=== PATIENT | female | born 1985 | race Caucasian/White ===

== ENCOUNTER 2017-10-12 16:45 | Observation (INO) | payer MEDICAID ==
[~2017-10-12] VITALS: Ht 162.6 cm; Wt 86.6 kg
[2017-10-12] MEDS ORDERED: FERR325T6 PO (17:20)
[2017-10-12] MEDS ORDERED: PREN1TAB78 PO (17:20)
== END 2017-10-12 19:00 | disposition home or self-care (01) ==
LOC: L&D 16:45
PROVIDERS: ADMIT Obstetrics & Gynecology; ATTEND Obstetrics & Gynecology
DX: O62.9 Abnormality of forces of labor, unspecified (principal); O32.1XX0 Maternal care for breech presentation, not applicable or unspecified; Z3A.39 39 weeks gestation of pregnancy
CPT/HCPCS: 76805; 99281; G0378

== ENCOUNTER 2017-10-22 05:56 | Inpatient (IN) | payer MEDICAID ==
[~2017-10-22] VITALS: Ht 162.6 cm; Wt 85.7 kg
[~2017-10-22 05:56] MED LIST: FERR325T6 PO; PREN1TAB78 PO
[2017-10-22] MEDS ORDERED: DEXT 5%/LR + PITOCIN 20UNITS/L 1,000 ML IV SCH (06:07)
[2017-10-22] MEDS ORDERED: CARBOPROST TROMETHAMINE 250 MCG/ML AMPUL IM PRN (06:15)
[2017-10-22] MEDS ORDERED: METHYLERGONOVINE MALEATE 0.2 MG/ML IM PRN (06:15)
[2017-10-22] MEDS: LACTATED RINGERS 1,000 ML IV SCH ×2 (07:21→10:41)
[2017-10-22 07:29] LABS: CLARITY URINE TURBID (CLEAR); COLOR URINE YELLOW (YELLOW); KETONES URINE NEGATIVE (NEGATIVE); LEUKOCYTE ESTERASE URINE 2+ (NEGATIVE); NITRITE URINE NEGATIVE (NEGATIVE); OCCULT BLOOD URINE NEGATIVE (NEGATIVE); PH URINE 6.5 (4.5-8.0); PROTEIN URINE NEGATIVE (NEGATIVE); SPECIFIC GRAVITY URINE 1.014 (1.005-1.030); UROBILINOGEN URINE 0.2 E.U./dL (0.2-1.0)
[2017-10-22 07:31] LABS: BASOPHILS % 0.3 % (0.0-2.0); EOSINOPHILS % 0.5 % (0.0-5.0); HEMATOCRIT. 28.4 % (36.0-48.0); HEMOGLOBIN. 9.8 g/dL (12.0-16.0); LYMPHOCYTES % 18.2 % (20.0-50.0); MEAN CORPUSCULAR HEMOGLOBIN 29.3 pg (28.0-32.0); MEAN CORPUSCULAR VOLUME 84.8 fL (81.0-99.0); MEAN PLATELET VOLUME 8.6 fl (7.4-10.4); MONOCYTES % 5.8 % (2.0-8.0); NEUTROPHILS % 75.2 % (40.0-76.0); PLATELET 259 x1000/uL (130-400); PROTHROMBIN TIME 10.4 sec (9.4-11.6); RED BLOOD CELL COUNT 3.35 mill/uL (4.2-5.4); RED CELL DISTRIBUTION WIDTH 14.8 % (11.6-14.6)
[2017-10-22 08:01] LABS: *AMPHETAMINES SCREEN URINE NEGATIVE (NEGATIVE); *BARBITURATES SCREEN URINE NEGATIVE (NEGATIVE); *BENZODIAZEPINES SCREEN URINE NEGATIVE (NEGATIVE); *COCAINE SCREEN URINE NEGATIVE (NEGATIVE); CANNABINOID URINE SCREEN NEGATIVE (NEGATIVE); METHADONE URINE SCREEN NEGATIVE (NEGATIVE); OPIATES URINE SCREEN NEGATIVE (NEGATIVE); PHENCYCLIDINE URINE SCREEN NEGATIVE (NEGATIVE)
[2017-10-22 08:11] LABS: RUBELLA IGG 61.2 IU/mL (4.99-10)
[2017-10-22 08:12] LABS: HEPATITIS B SURFACE ANTIGEN NEGATIVE
[2017-10-22] MEDS ORDERED: FENTANYL CITRATE/PF 50MCG/ML 2ML VIAL ONE (12:52)
[2017-10-22] MEDS ORDERED: MORPHINE SULFATE/PF 1MG/ML 10ML AMP ONE (12:52)
[2017-10-22] MEDS ORDERED: PHENYLEPHRINE HCL 10 MG/ML 1ML (IV VIAL) IV ONE (12:52)
[2017-10-22] MEDS ORDERED: CEFAZOLIN SODIUM 1000MG/VIAL ONE (13:19)
[2017-10-22] MEDS ORDERED: DIPHENHYDRAMINE 50MG/ML VIAL IM PRN (13:45)
[2017-10-22] MEDS ORDERED: NALOXONE HCL 0.4 MG/ML 1ML VIAL IV PRN ×3 (13:45→14:07)
[2017-10-22] MEDS ORDERED: GLYCOPYRROLATE 0.2 MG/ML 2ML VIAL ONE (13:56)
[2017-10-22] MEDS ORDERED: RHO(D) IMMUNE GLOBULIN 300 MCG/SYR IM PRN (14:00)
[2017-10-22] MEDS ORDERED: HYDROMORPHONE HCL/PF 2MG/ML CPJ IM PRN (14:00)
[2017-10-22] MEDS ORDERED: BISACODYL 10MG SUPP PR PRN (14:00)
[2017-10-22] MEDS ORDERED: IBUPROFEN 400MG TABLET PO PRN (14:00)
[2017-10-22] MEDS: DEXT 5%/LR + PITOCIN 20UNITS/L 1,000 ML IV SCH ×2 (15:11→21:47)
[2017-10-22] MEDS: KETOROLAC 30MG/ML VIAL IV SCH ×2 (15:16→21:45)
[2017-10-22 16:45] VITALS: BP 109/69
[2017-10-22 17:15] VITALS: BP 107/70
[2017-10-22] MEDS: ONDANSETRON HCL 4MG/2ML VIAL IV PRN (17:43)
[2017-10-22 17:45] VITALS: BP 109/78
[2017-10-22 20:00] VITALS: BP 103/67
[2017-10-23] MEDS: ONDANSETRON HCL 4MG/2ML VIAL IV PRN (00:02)
[2017-10-23 00:05] VITALS: BP 120/71
[2017-10-23] MEDS: KETOROLAC 30MG/ML VIAL IV SCH ×2 (02:00→07:40)
[2017-10-23 04:00] VITALS: BP 124/78
[2017-10-23] MEDS: DEXT 5%/LR + PITOCIN 20UNITS/L 1,000 ML IV SCH (05:41)
[2017-10-23 07:02] LABS: BASOPHILS % 0.2 % (0.0-2.0); EOSINOPHILS % 0.6 % (0.0-5.0); HEMATOCRIT. 26.3 % (36.0-48.0); HEMOGLOBIN. 8.8 g/dL (12.0-16.0); LYMPHOCYTES % 21.4 % (20.0-50.0); MEAN CORPUSCULAR HEMOGLOBIN 28.7 pg (28.0-32.0); MEAN CORPUSCULAR VOLUME 85.9 fL (81.0-99.0); MEAN PLATELET VOLUME 8.7 fl (7.4-10.4); MONOCYTES % 7.4 % (2.0-8.0); NEUTROPHILS % 70.4 % (40.0-76.0); PLATELET 236 x1000/uL (130-400); RED BLOOD CELL COUNT 3.06 mill/uL (4.2-5.4); RED CELL DISTRIBUTION WIDTH 15.1 % (11.6-14.6)
[2017-10-23 07:45] VITALS: BP 120/77
[2017-10-23] MEDS ORDERED: IBUPROFEN 400MG TABLET PO PRN (14:00)
[2017-10-23] MEDS: ACETAMINOPHEN WITH CODEINE 300/30MG TABLET PO PRN ×2 (15:43→21:21)
[2017-10-23 16:28] VITALS: BP 111/78
[2017-10-23] MEDS: IBUPROFEN 800MG TABLET PO PRN (16:57)
[2017-10-23 21:40] VITALS: BP 128/83
[2017-10-24 06:30] VITALS: BP 110/68
[2017-10-24 08:02] VITALS: BP 116/77
[2017-10-24] MEDS: IBUPROFEN 800MG TABLET PO PRN (08:53)
[2017-10-24] MEDS: ACETAMINOPHEN WITH CODEINE 300/30MG TABLET PO PRN (14:09)
[2017-10-24] MEDS ORDERED: INFLUENZA VIRUS VACCINE 0.5ML SYR IM ONE (16:00)
[2017-10-24 16:09] VITALS: BP 122/82
[2017-10-24] MEDS ORDERED: TETANUS, DIPHTHERIA, PERTUSSIS VAC/PF 0.5ML (>7YR OLD) IM ONE (18:00)
== END 2017-10-24 17:55 | disposition home or self-care (01) | DRG 540 ==
LOC: L&D 05:56 → OBSVTOIN 05:56 → 7EST PP/OB 17:11
PROVIDERS: ADMIT Obstetrics & Gynecology; ATTEND Obstetrics & Gynecology
PROC: 10D00Z1 Extraction of Products of Conception, Low, Open Approach (ICD-10-PCS; principal; 2017-10-22 13:56)
DX: O34.219 Maternal care for unspecified type scar from previous cesarean delivery (principal); D64.9 Anemia, unspecified; O69.81X0 Labor and delivery complicated by cord around neck, without compression, not applicable or unspecified; O99.02 Anemia complicating childbirth; Z3A.39 39 weeks gestation of pregnancy; Z37.0 Single live birth
CPT/HCPCS: 36415; 80305; 81003; 85025; 85610; 86592; 86703; 86762; 86850; 86900; 86920; 87340; 88307; 90686; 90715; J0690; J1885; J2274; J2370; J2405; J2590; J3010; J3490; J7120; A4315

== ENCOUNTER 2019-12-04 15:13 | Observation (INO) | payer MEDICAID ==
[~2019-12-04] VITALS: Ht 157.5 cm; Wt 87.1 kg
[~2019-12-04 15:13] MED LIST changes: -PREN1TAB78 PO
[2019-12-04 16:21] LABS: CLARITY URINE CLOUDY (CLEAR); COLOR URINE YELLOW (YELLOW); KETONES URINE TRACE (NEGATIVE); LEUKOCYTE ESTERASE URINE 2+ (NEGATIVE); NITRITE URINE NEGATIVE (NEGATIVE); OCCULT BLOOD URINE NEGATIVE (NEGATIVE); PH URINE 6.5 (4.5-8.0); PROTEIN URINE NEGATIVE (NEGATIVE); SPECIFIC GRAVITY URINE 1.014 (1.005-1.030)
[2019-12-04] MEDS ORDERED: SODIUM CHLORIDE 0.9% 500 ML IV NR (17:00)
[2019-12-04] MEDS ORDERED: ACETAMINOPHEN 500MG TABLET PO NR (17:04)
[2019-12-04] MEDS ORDERED: CEFAZOLIN 2,000 MG in DEXT 5% WATER 100 ML IV SCH (17:30)
== END 2019-12-04 18:00 | disposition home or self-care (01) ==
LOC: 8 EST LDRP 15:13
PROVIDERS: ADMIT Obstetrics & Gynecology; ATTEND Obstetrics & Gynecology
DX: O26.893 Other specified pregnancy related conditions, third trimester (principal); R10.9 Unspecified abdominal pain; M54.5 Low back pain; Z3A.33 33 weeks gestation of pregnancy
CPT/HCPCS: 76805; 76817; 76818; 81003; 87086; 96365; 99281; G0378; J0690; J7060; 96360

== ENCOUNTER 2020-01-03 12:18 | Inpatient (IN) | payer MEDICAID ==
[~2020-01-03] VITALS: Ht 157.5 cm; Wt 82.6 kg
[2020-01-03] MEDS ORDERED: DEXT 5%/LR + PITOCIN 20UNITS/L 1,000 ML IV SCH ×2 (13:24→16:57)
[2020-01-03] MEDS ORDERED: CARBOPROST TROMETHAMINE 250 MCG/ML AMPUL IM PRN (13:30)
[2020-01-03] MEDS ORDERED: METHYLERGONOVINE MALEATE 0.2 MG/ML IM PRN (13:30)
[2020-01-03] MEDS: LACTATED RINGERS 1,000 ML IV SCH (13:50)
[2020-01-03 14:14] LABS: BASOPHILS % 0.4 % (0.0-2.0); EOSINOPHILS % 0.3 % (0.0-5.0); HEMATOCRIT. 26.9 % (36.0-48.0); HEMOGLOBIN. 9.1 g/dL (12.0-16.0); LYMPHOCYTES % 22.8 % (20.0-50.0); MEAN CORPUSCULAR HEMOGLOBIN 28.4 pg (28.0-32.0); MEAN CORPUSCULAR VOLUME 83.5 fL (81.0-99.0); MEAN PLATELET VOLUME 9.6 fl (7.4-10.4); MONOCYTES % 4.6 % (2.0-8.0); NEUTROPHILS % 71.9 % (40.0-76.0); PLATELET 219 x1000/uL (130-400); RED BLOOD CELL COUNT 3.22 mill/uL (4.2-5.4)
[2020-01-03 14:19] LABS: CHLORIDE 112 mEq/L (98-107); CLARITY URINE CLEAR (CLEAR); COLOR URINE YELLOW (YELLOW); KETONES URINE NEGATIVE (NEGATIVE); LEUKOCYTE ESTERASE URINE 3+ (NEGATIVE); NITRITE URINE NEGATIVE (NEGATIVE); OCCULT BLOOD URINE 1+ (NEGATIVE); PH URINE 6.5 (4.5-8.0); PROTEIN URINE NEGATIVE (NEGATIVE); SPECIFIC GRAVITY URINE 1.015 (1.005-1.030)
[2020-01-03 14:20] LABS: INR 0.9; PARTIAL THROMBOPLASTIN TIME 22.4 sec (23.4-31.0); PROTHROMBIN TIME 10.3 sec (9.6-11.0)
[2020-01-03 14:41] LABS: *AMPHETAMINES SCREEN URINE NEGATIVE (NEGATIVE); *BARBITURATES SCREEN URINE NEGATIVE (NEGATIVE); *BENZODIAZEPINES SCREEN URINE NEGATIVE (NEGATIVE); *COCAINE SCREEN URINE NEGATIVE (NEGATIVE); METHADONE URINE SCREEN NEGATIVE (NEGATIVE)
[2020-01-03 14:42] LABS: CANNABINOID URINE SCREEN NEGATIVE (NEGATIVE); OPIATES URINE SCREEN NEGATIVE (NEGATIVE); PHENCYCLIDINE URINE SCREEN NEGATIVE (NEGATIVE)
[2020-01-03] MEDS ORDERED: MORPHINE SULFATE/PF 1MG/ML 10ML AMP ONE (15:06)
[2020-01-03] MEDS ORDERED: KETOROLAC 60MG/2ML VIAL IM ONE (15:14)
[2020-01-03] MEDS ORDERED: SUCCINYLCHOLINE CHLORIDE 200MG/10ML IV ONE (15:14)
[2020-01-03] MEDS ORDERED: EPHEDRINE SULFATE 50MG/ML VIAL ONE (15:14)
[2020-01-03] MEDS ORDERED: ONDANSETRON HCL 4MG/2ML INJ ONE (15:14)
[2020-01-03] MEDS ORDERED: CEFAZOLIN SODIUM 1000MG/VIAL ONE (15:14)
[2020-01-03] MEDS ORDERED: OXYTOCIN 10 UNITS/ML 1ML ONE (15:14)
[2020-01-03] MEDS ORDERED: PHENYLEPHRINE HCL 10 MG/ML 1ML (IV VIAL) IV ONE (15:14)
[2020-01-03] MEDS ORDERED: CITRIC ACID/SODIUM CITRATE SOLN 30ML UDC PO NR (15:15)
[2020-01-03 15:26] LABS: HEPATITIS B SURFACE ANTIGEN NEGATIVE
[2020-01-03] MEDS ORDERED: NALOXONE HCL 0.4 MG/ML 1ML VIAL IV PRN (17:00)
[2020-01-03] MEDS ORDERED: IBUPROFEN 400MG TABLET PO PRN (17:00)
[2020-01-03] MEDS ORDERED: KETOROLAC 30MG/ML VIAL IV PRN (17:00)
[2020-01-03] MEDS ORDERED: BISACODYL 10MG SUPP PR PRN (17:00)
[2020-01-03] MEDS ORDERED: METOCLOPRAMIDE HCL 10MG/2ML VIAL IV PRN (17:00)
[2020-01-03] MEDS ORDERED: DIPHENHYDRAMINE 50MG/ML VIAL IV PRN ×2 (17:00)
[2020-01-03] MEDS ORDERED: RHO(D) IMMUNE GLOBULIN 300 MCG/SYR IM PRN (17:00)
[2020-01-03] MEDS ORDERED: ONDANSETRON HCL 4MG/2ML INJ IV PRN (17:00)
[2020-01-03] MEDS ORDERED: MISOPROSTOL 200MCG TABLET RC ONE (17:30)
[2020-01-03 20:56] LABS: HEMATOCRIT 20.3 % (36.0-48.0); HEMOGLOBIN 6.8 g/dL (12.0-16.0)
[2020-01-03 21:10] VITALS: BP 120/84
[2020-01-03] MEDS: KETOROLAC 30MG/ML VIAL IV SCH (21:59)
[2020-01-03 22:00] VITALS: BP 126/82
[2020-01-03 22:08] VITALS: BP 115/84
[2020-01-03 23:00] VITALS: BP 118/79
[2020-01-03 23:15] VITALS: BP 127/82
[2020-01-03 23:36] VITALS: BP 122/77
[2020-01-04] VITALS: BP 124/73
[2020-01-04 02:54] VITALS: BP 109/81
[2020-01-04] MEDS: KETOROLAC 30MG/ML VIAL IV SCH ×2 (03:55→10:28)
[2020-01-04 04:00] VITALS: BP 115/73
[2020-01-04 06:29] LABS: BASOPHILS % 0.3 % (0.0-2.0); EOSINOPHILS % 0.3 % (0.0-5.0); HEMOGLOBIN. 8.2 g/dL (12.0-16.0); LYMPHOCYTES % 16.7 % (20.0-50.0); MEAN CORPUSCULAR HEMOGLOBIN 28.4 pg (28.0-32.0); MEAN CORPUSCULAR VOLUME 83.3 fL (81.0-99.0); MEAN PLATELET VOLUME 9.5 fl (7.4-10.4); MONOCYTES % 6.5 % (2.0-8.0); NEUTROPHILS % 76.2 % (40.0-76.0); PLATELET 161 x1000/uL (130-400); RED BLOOD CELL COUNT 2.88 mill/uL (4.2-5.4); RED CELL DISTRIBUTION WIDTH 14.9 % (11.6-14.6)
[2020-01-04] MEDS: LACTATED RINGERS 1,000 ML IV SCH (07:21)
[2020-01-04 07:30] VITALS: BP 121/82
[2020-01-04 14:00] VITALS: BP 125/82
[2020-01-04] MEDS: IBUPROFEN 800MG TABLET PO PRN (15:24)
[2020-01-04 20:00] VITALS: BP 123/73
[2020-01-05] VITALS: BP 125/75
[2020-01-05] MEDS: IBUPROFEN 800MG TABLET PO PRN ×3 (02:26→18:14)
[2020-01-05 04:30] VITALS: BP 119/71
[2020-01-05 07:31] VITALS: BP 131/82
[2020-01-05 16:12] VITALS: BP 129/81
[2020-01-05 20:00] VITALS: BP 135/86
[2020-01-06] VITALS: BP 132/85
[2020-01-06 03:47] VITALS: BP 134/86
[2020-01-06] MEDS: IBUPROFEN 800MG TABLET PO PRN ×2 (03:47→09:40)
[2020-01-06] MEDS ORDERED: IBUP-2030 MT (04:57)
[2020-01-06 07:29] VITALS: BP 129/83
== END 2020-01-06 10:50 | disposition home or self-care (01) | DRG 540 ==
LOC: OBSVTOIN 12:18 → 8 EST LDRP 12:18 → 8EST 22:36
PROVIDERS: ADMIT Obstetrics & Gynecology; ATTEND Obstetrics & Gynecology
PROC: 30233N1 Transfusion of Nonautologous Red Blood Cells into Peripheral Vein, Percutaneous Approach (ICD-10-PCS; principal; 2020-01-03)
PROC: 10D00Z1 Extraction of Products of Conception, Low, Open Approach (ICD-10-PCS; 2020-01-03)
PROC: 0UB70ZZ Excision of Bilateral Fallopian Tubes, Open Approach (ICD-10-PCS; 2020-01-03)
DX: O34.211 Maternal care for low transverse scar from previous cesarean delivery (principal); K83.1 Obstruction of bile duct; O72.1 Other immediate postpartum hemorrhage; O75.89 Other specified complications of labor and delivery; R03.0 Elevated blood-pressure reading, without diagnosis of hypertension; Z37.0 Single live birth; Z3A.37 37 weeks gestation of pregnancy; Z30.2 Encounter for sterilization
CPT/HCPCS: 36415; 80053; 80305; 81003; 84550; 85014; 85018; 85025; 85384; 86592; 86703; 86762; 86850; 86900; 86920; 87340; 88302; 88307; G0378; J0330; J0690; J1885; J2274; J2370; J2405; J2590; J3490; J7120; P9016